=== PATIENT | female | born 1960 | race Caucasian/White ===

== ENCOUNTER 2017-10-31 06:43 | Emergency (ER) | payer SELFPAY ==
[~2017-10-31] VITALS: Ht 157.5 cm; Wt 56.0 kg
[2017-10-31 11:29] VITALS: BP 115/41
[2017-10-31] MEDS ORDERED: ACETAMINOPHEN 325MG TABLET PO ONE (11:30)
[2017-10-31] MEDS ORDERED: IBUPROFEN 600MG TABLET PO ONE (11:30)
== END 2017-10-31 12:00 | disposition home or self-care (01) ==
LOC: EDSEX 06:43 → ER 06:43
DX: M75.42 Impingement syndrome of left shoulder (principal); Z90.89 Acquired absence of other organs
CPT/HCPCS: 99283